=== PATIENT | male | born 1930 | race Caucasian/White ===

== ENCOUNTER → 2017-11-19 | Outpatient (CLI) | payer MEDICARE ==
--- NOTE | 2017-11-19 13:57 | CT ---
EXAMINATION TYPE: CT brain wo con DATE OF EXAM: 11/19/2017 COMPARISON: NONE INDICATION: Memory loss DLP: 1199 mGycm, Automated exposure control for dose reduction was used. CONTRAST: None CT of the brain is performed utilizing 3 mm thick sections through the posterior fossa and 3 mm thick sections through the remaining calvarium. Study is performed within 24 hours of arrival to the [facility]. No abnormal hyperdensity is present to suggest an acute intracranial hemorrhage. No mass lesion is evident. No acute infarcts are evident. There is mild periventricular white matter hypodensity, likely on the basis of chronic white matter ischemic changes. Ventricles and sulci are prominent for the patient age. Mucosal thickening is within the right maxillary sinus. Remaining paranasal sinuses and mastoid air c ells within the [id number] are clear. IMPRESSIONS: 1. Mild periventricular white matter ischemic changes. 2. Atrophy 3. No acute intracranial process.
== END | disposition home or self-care (01) ==
LOC: RADCTMAIN 13:24
PROVIDERS: ATTEND Nurse Practitioner Family
DX: I67.82 Cerebral ischemia (principal); G31.9 Degenerative disease of nervous system, unspecified
CPT/HCPCS: 70450